=== PATIENT | male | born 1970 | race Caucasian/White ===

== ENCOUNTER 2021-06-17 12:28 | Emergency (ER) | payer OTHER ==
[~2021-06-17] VITALS: Ht 147.3 cm; Wt 72.6 kg
[2021-06-17] MEDS ORDERED: NOVOLOG100 UNIT/1 SUBCUTANEO (12:56)
[2021-06-17] MEDS ORDERED: NOVOLOG100 UNIT/1 SQ (15:21)
== END 2021-06-17 15:41 | disposition home or self-care (01) ==
LOC: ER 12:28
DX: E10.65 Type 1 diabetes mellitus with hyperglycemia (principal)